=== PATIENT | female | born 1945 | race Caucasian/White ===

== ENCOUNTER 2018-01-30 19:38 | Emergency (ER) | payer MEDICARE, BC ==
[2018-01-30 20:20] LABS: URINE APPEARANCE CLEAR; URINE BILIRUBIN NEGATIVE (NEGATIVE); URINE BLOOD NEGATIVE (NEGATIVE); URINE COLOR YELLOW; URINE GLUCOSE (UA) NEGATIVE (NEGATIVE); URINE KETONE NEGATIVE (NEGATIVE); URINE LEUKOCYTE ESTERASE TRACE (NEGATIVE); URINE NITRITE NEGATIVE (NEGATIVE); URINE PROTEIN NEGATIVE (NEGATIVE); URINE UROBILINOGEN 0.2 E.U./dL (0.20 - 1.00)
--- NOTE | 2018-01-30 20:24 | Emergency Department Record ---
History of Present Illness - General Chief Complaint: Abdominal Pain Stated Complaint: ABD PAIN AND HIGH BP Time Seen by Provider: 01/30/18 20:21 Source: Patient Mode of Arrival: Ambulatory Limitations: No limitations - History of Present Illness Initial Comments: The patient is here due to not feeling well for one day. She has had a mild YAÑEZ and has been monitoring her blood pressure at home and it has been elevated. She also has had mild upper abdominal burning for one day. She denies any nausea , vomiting, CP, SOB, diarrhea, dysuria, or fevers. The patient does have a long hx of HTN and did take an extra dose of Clonidine tonight. MD Complaint: Abdominal pain Onset/Timin -: Days(s) Location: LUQ, RUQ Radiation: None Migration to: No migration Consistency: Constant Improves With: Nothing Worsens With: Nothing - Related Data Home Medications Medication Instructions Recorded Confirmed Last Taken Amlodipine Besylate [Norvasc] 10 mg PO DAILY 01/30/18 01/30/18 Unknown Allergies Allergy/AdvReac Type Severity Reaction Status Date / Time adenosine [ADENOSINE] Allergy Unknown HIVES Verified 07/11/15 16:18 codeine [CODEINE] Allergy Unknown HIVES Verified 07/11/15 16:18 esomeprazole magnesium Allergy Unknown HIVES Verified 07/11/15 16:18 [From NEXIUM] hydrocodone bitartrate Allergy Unknown HIVES Verified 07/11/15 16:18 [From VICODIN] labetalol [LABETALOL] Allergy Unknown ANAPHYLAXIS Verified 07/11/15 16:18 Penicillins [PENICILLINS] Allergy Unknown HIVES Verified 07/11/15 16:18 propoxyphene HCl Allergy Unknown HIVES Verified 07/11/15 16:18 [From DARVON] Sulfa (Sulfonamide Allergy Unknown RASH Verified 07/11/15 16:18 Antibiotics) [SULFA (SULFONAMIDE ANTIBIOTICS)] tetanus toxoid, adsorbed Allergy Unknown RASH Verified 07/11/15 16:18 [TETANUS TOXOID, ADSORBED] Travel Screening - Travel/Exposure Within Last 30 Days Have you traveled within the last 30 days?: No - Travel Symptoms Symptom Screening: None Review of Systems Constitutional: Denies: Chills, Fever Eyes: Denies: Eye discharge ENT: Denies: Congestion Respiratory: Denies: Cough, Dyspnea Past Medical History - SOCIAL HISTORY Smoking Status: Light tobacco smoker (<10/day) - RESPIRATORY Hx Respiratory Disorders: Yes Hx COPD: Yes - CARDIOVASCULAR Hx Cardio Disorders: Yes Hx Hypertension: Yes - NEURO Hx Neuro Disorders: No - GI Hx GI Disorders: Yes Hx Irritable Bowel: Yes - Hx Genitourinary Disorders: Yes Hx Renal Disease: Yes (No left kidney) Comment:: renal stent - ENDOCRINE Hx Endocrine Disorders: No Hx Diabetes: Yes ("my doctor thinks I might have diabetes.") - MUSCULOSKELETAL Hx Musculoskeletal Disorders: No - PSYCH Hx Psych Problems: No - HEMATOLOGY/ONCOLOGY Hx Hematology/Oncology Disorders: No Comment:: psoriasis Family Medical History Any Significant Family History?: Yes Hx Alcohol Use: Brother/Sister Hx Anxiety: Brother/Sister Hx Cancer: Brother/Sister Hx Depression: Brother/Sister Hx Diabetes: Brother/Sister, Grandparents Hx Heart Disease: Father Hx HTN: Father, Mother, Brother/Sister Hx Resp Disorders: Brother/Sister Hx Seizures: Children Hx Stroke: Father Physical Exam - General General Appearance: Alert, Oriented x3, Cooperative, No acute distress - Eye Eye exam: Normal appearance, PERRL - ENT Throat exam: Normal inspection. negative: Tonsillar erythema, Tonsillar exudate - Neck Neck exam: Normal inspection, Full ROM. negative: Tenderness - Respiratory Respiratory exam: Normal lung sounds bilaterally. negative: Respiratory distress - Cardiovascular Cardiovascular Exam: Regular rate, Normal rhythm, Normal heart sounds - GI/Abdominal GI/Abdominal exam: Soft, Tenderness (There is mild diffuse upper abdominal tenderness but no guarding or rebound.). negative: Distended, Rebound, Rigid - Extremities Extremities exam: Normal inspection, Full ROM, Normal capillary refill. negative: Tenderness Course Vital Signs 01/30/18 20:02 Temperature 97.9 F Pulse Rate [ 80 Pulse Ox Probe] Respiratory 20 Rate Blood Pressure 184/114 [Left Arm] Pulse Ox 97 - Reevaluation(s) Reevaluation #1: The patient is doing very well at this time. Her pain has definitely improved and she has no nausea or vomiting. The patient's BP is much improved also. I did discuss with her that our workup did not demonstrate any acute abnormality. 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 She is to restart her Protonix and increase her Clonidine and F/U with her multiple physicians for recheck. 01/30/18 22:59 Reevaluation #2: We did also recheck the patient's potassium and it is normal an redraw. 01/30/18 23:02 Medical Decision Making - Data Complexity MDM Data: Labs Ordered and/or Reviewed, X-Ray Ordered and/or Reviewed, EKG Ordered and/or Reviewed - Lab Data Result diagrams: 01/30/18 20:50 01/30/18 22:05 Lab Results 01/30/18 Range/Units 20:15 Urine Color Yellow Urine Appearance Clear Urine pH 6.0 (5.0-8.0) Ur Specific [place] <= 1.005 (1.002-1.030) Urine Protein Negative (NEGATIVE) Urine Glucose (UA) Negative (NEGATIVE) Urine Ketones Negative (NEGATIVE) Urine Blood Negative (NEGATIVE) Urine Nitrite Negative (NEGATIVE) Urine Bilirubin Negative (NEGATIVE) Urine Urobilinogen 0.2 (0.20 - 1.00) E.U./dL Ur Leukocyte Esterase Trace H (NEGATIVE) - EKG Data -: EKG Interpreted by [place] EKG: No Acute Changes (NSR at 72, Incomplete RBBB. Neg for any ischemic changes. 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 Take your Protonix as directed and return to the ER for any worsening symptoms, vomiting, fever, or diarrhea. Forms: Patient Portal Access Time of Disposition: 22:50 Quality - Quality Measures Quality Measures: N/A - Blood Pressure Screening View Details: Yes Does Patient Have Any of the Following: Active Dx of HTN Blood Pressure Classification: Pre-Hypertensive BP Reading Systolic Measurement: 144 Diastolic Measurement: 89 Screening for High Blood Pressure: Patient Exclusion, Hx of HTN [G9744]
[2018-01-30 20:29] LABS: URINE EPITHELIAL CELLS 0 - 2 (FEW); URINE RBC NONE SEEN (NONE SEEN); URINE WBC 0 - 2 (0-2/hpf)
[2018-01-30] MEDS ORDERED: ONDANSETRON HCL IV 4 MG/2 ML VIAL IV ONE (20:36)
[2018-01-30] MEDS ORDERED: 0.9 % SODIUM CHLORIDE 1,000 ML BAG IV ONE (20:36)
[2018-01-30] MEDS ORDERED: ACETAMINOPHEN 325 MG TAB PO ONE (20:37)
[2018-01-30 21:00] LABS: BASO % 0.4 % (0-6); EOS % 1.8 % (0-6); GRAN % 62.2 % (47-80); HEMATOCRIT 39.8 % (35.0-47.0); LYMPH % 30.2 % (16-45); MEAN CELL VOLUME 90.9 fl (81-97); MEAN CORPUSCULAR HEMOGLOBIN 29.7 pg (27-33); MEAN CORPUSCULAR HGB CONC 32.7 g/dl (32-36); MEAN PLATELET VOLUME 8.7 fl (7.4-10.4); MONO % 5.4 % (0-9); PLATELET COUNT 320 K/uL (130-400); RED BLOOD COUNT 4.38 M/uL (3.80-5.40); RED CELL DISTRIBUTION WIDTH 13.2 % (11.5-14.5)
[2018-01-30 21:14] LABS: BLOOD UREA NITROGEN 19 mg/dL (8-23); CREATININE 1.6 mg/dL (0.5-0.9); EST GLOMERULAR FILTRATION RATE 34 mL/min
[2018-01-30 21:15] LABS: TOTAL PROTEIN 6.9 g/dL (6.6-8.7)
[2018-01-30 21:17] LABS: GLUCOSE,RANDOM 131 mg/dL (74-109)
[2018-01-30 21:19] LABS: ALBUMIN 4.1 g/dL (4.0-5.0); ALT/SGPT 9 U/L (<33); AST/SGOT 15 U/L (10.0-35.0)
[2018-01-30 21:20] LABS: ALKALINE PHOSPHATASE 139 U/L (35-104); BILIRUBIN,DIRECT < 0.2 mg/dL (0-0.3); CREATINE PHOSPHOKINASE 39 U/L (26-192); LIPASE 52 U/L (13-60)
[2018-01-30 21:22] LABS: CKMB 1.5 ng/mL (<3.77)
[2018-01-30] MEDS ORDERED: SUCRALFATE 1 G/10 ML UD PO ONE (21:27)
--- NOTE | 2018-02-01 09:10 | CT SCAN REPORT ---
EXAM: CT SCAN OF THE ABDOMEN AND PELVIS WITHOUT CONTRAST HISTORY: UPPER ABDOMINAL PAIN AND BURNING SENSATION. TECHNIQUE: Standard CT imaging of the abdomen and pelvis was performed in the axial plane without contrast. Additional coronal and sagittal reformatted images were also performed. Comparison: 06/17/15. FINDINGS: The lung bases are clear. The liver parenchyma is unremarkable. The gallbladder is surgically absent. The biliary tree, pancreas, spleen, and left adrenal gland are normal. A stable low density nodule is present within the right adrenal gland consistent with a benign adenoma. A 3 mm nonobstructing stones is present within the inferior pole of the right kidney. The right kidney and ureter are otherwise normal. The left kidney is surgically absent. 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 This has increased in size from the previous examination where it measured 1.8 x 1.6 x 1.7 cm. There is no evidence for rupture. The patient is status post endovascular repair of the aorta. A right renal artery stent is present. An aortobiiliac graft is also present. There are aneurysms involving the femoral arteries bilaterally with the right measuring 4.1 cm AP x 2.6 cm transverse. This previously measured 2.6 cm AP x 2 cm transverse. The left femoral artery aneurysm measures 3.3 cm AP x 3.5 cm transverse. This previously measured 2.5 cm AP x 2.4 cm transverse. A femoral graft is also present anterior to the aneurysm. There is no evidence for aneurysm rupture. There is no retroperitoneal lymphadenopathy. Scattered diverticula are present within the descending and sigmoid colon regions with no evidence for acute diverticulitis. The remaining large and small bowel loops are normal. The stomach and epigastrium are normal. There is no pneumoperitoneum or ascites. The uterus is surgically absent. The urinary bladder is normal. Degenerative changes are present within the spine. There are no acute osseous abnormalities. IMPRESSION: 1. NO ACUTE INTRAABDOMINAL PATHOLOGY. 2. STATUS POST LEFT NEPHRECTOMY. THERE IS AN ANEURYSM AT THE LEFT RENAL ARTERY ORIGIN WHICH HAS INCREASED IN SIZE FROM THE PREVIOUS STUDY NOW MEASURING 2.7 X 2 X 2.2 CM. THERE IS NO EVIDENCE FOR RUPTURE. 3. BILATERAL FEMORAL ARTERY ANEURYSMS MEASURING 4.1 X 2.6 CM ON THE RIGHT AND 3.3 X 3.5 CM ON THE LEFT. THESE HAVE INCREASED IN SIZE FROM THE PREVIOUS EXAMINATION WITH PREVIOUS MEASUREMENTS NOTED ABOVE. 4. COLONIC DIVERTICULOSIS WITH NO DIVERTICULITIS. 5. STABLE 3 MM NONOBSTRUCTING STONE WITHIN THE RIGHT KIDNEY. 6. STABLE RIGHT ADRENAL ADENOMA. 7. ADDITIONAL CHRONIC FINDINGS ABOVE. JOB NUMBER: [id number] [facility]
== END 2018-01-30 23:03 | disposition home or self-care (01) ==
LOC: ER 19:38
DX: R10.12 Left upper quadrant pain (principal); R10.11 Right upper quadrant pain; R51 Headache; I10 Essential (primary) hypertension; F17.210 Nicotine dependence, cigarettes, uncomplicated
CPT/HCPCS: 74176; 80048; 80076; 81001; 82550; 82553; 83690; 84132; 84484; 85025; 93005; 93010; 96374; 99284; J7030

== ENCOUNTER 2018-06-18 18:03 | Emergency (ER) | payer MEDICARE, BC ==
[2018-06-18] MEDS ORDERED: 0.9 % SODIUM CHLORIDE 1000ML 1,000 ML IV SCH (18:30)
--- NOTE | 2018-06-18 18:35 | Emergency Department Record ---
History of Present Illness - General Stated complaint: DEHYDRATION, HIGH WHITE COUNT Time Seen by Provider: 06/18/18 18:19 Source: Patient, Family Mode of Arrival: Wheelchair Limitations: No limitations - History of Present Illness Initial comments: 72 yo female presents to ED for evaluation of generalized weakness, decreased appetite following recent AAA repair. Patient denies fevers, chills, or abdominal pain symptoms. Patient denies flank pain symptoms. Patient does reports that she contacted [facility] and was told to come to the ED for evaluation. Patient states that she left [facility] ED after 3 hours of waiting. MD Complaint: Generalized weakness Onset/Timin -: Week(s) Location: Generalized Severity: Moderate Consistency: Constant Improves with: None Worsens with: None Context: Recent surgery Associated Symptoms: Loss of appetite - [place] Coma Scale Eye Response: (4) Open spontaneously Motor Response: (6) Obeys commands Verbal Response: (5) Oriented [place] Total: 15 - Related Data Home Medications Medication Instructions Recorded Confirmed Last Taken Tiotropium [place] [Spiriva 4 gm IH DAILY 06/18/18 06/18/18 06/18/18 Respimat] Allergies Allergy/AdvReac Type Severity Reaction Status Date / Time adenosine [ADENOSINE] Allergy Unknown HIVES Verified 07/11/15 16:18 codeine [CODEINE] Allergy Unknown HIVES Verified 07/11/15 16:18 esomeprazole magnesium Allergy Unknown HIVES Verified 07/11/15 16:18 [From NEXIUM] hydrocodone bitartrate Allergy Unknown HIVES Verified 07/11/15 16:18 [From VICODIN] labetalol [LABETALOL] Allergy Unknown ANAPHYLAXIS Verified 07/11/15 16:18 Penicillins [PENICILLINS] Allergy Unknown HIVES Verified 07/11/15 16:18 propoxyphene HCl Allergy Unknown HIVES Verified 07/11/15 16:18 [From DARVON] Sulfa (Sulfonamide Allergy Unknown RASH Verified 07/11/15 16:18 Antibiotics) [SULFA (SULFONAMIDE ANTIBIOTICS)] tetanus toxoid, adsorbed Allergy Unknown RASH Verified 07/11/15 16:18 [TETANUS TOXOID, ADSORBED] Review of Systems Constitutional: Reports: Malaise, Weakness. Denies: Chills, Fever, Night sweats Eyes: Denies: Eye discharge, Eye pain ENT: Denies: Congestion, Epistaxis Respiratory: Denies: Cough, Dyspnea Cardiovascular: Denies: Chest pain, Dyspnea on exertion Endocrine: Reports: Fatigue. Denies: Heat or cold intolerance Gastrointestinal: Reports: Nausea. Denies: Abdominal pain, Vomiting Genitourinary: Denies: Incontinence, Retention Musculoskeletal: Denies: Arthralgia, Back pain Skin: Denies: Bruising, Change in color Neurological: Denies: Abnormal gait, Confusion, Headache, Tingling Psychiatric: Denies: Anxiety Hematological/Lymphatic: Denies: Anemia, Blood Clots Past Medical History - SOCIAL HISTORY Smoking Status: Light tobacco smoker (<10/day) - RESPIRATORY Hx Respiratory Disorders: Yes Hx COPD: Yes - CARDIOVASCULAR Hx Cardio Disorders: Yes Hx Hypertension: Yes - NEURO Hx Neuro Disorders: No - GI Hx GI Disorders: Yes Hx Irritable Bowel: Yes - Hx Genitourinary Disorders: Yes Hx Renal Disease: Yes (No left kidney) Comment:: renal stent - ENDOCRINE Hx Endocrine Disorders: No Hx Diabetes: Yes ("my doctor thinks I might have diabetes.") - MUSCULOSKELETAL Hx Musculoskeletal Disorders: No - PSYCH Hx Psych Problems: No - HEMATOLOGY/ONCOLOGY Hx Hematology/Oncology Disorders: No Comment:: psoriasis Family Medical History Hx Alcohol Use: Brother/Sister Hx Anxiety: Brother/Sister Hx Cancer: Brother/Sister Hx Depression: Brother/Sister Hx Diabetes: Brother/Sister, Grandparents Hx Heart Disease: Father Hx HTN: Father, Mother, Brother/Sister Hx Resp Disorders: Brother/Sister Hx Seizures: Children Hx Stroke: Father Physical Exam - General General Appearance: Alert, Oriented x3, Cooperative, Moderate distress Limitations: No limitations - Head Head exam: Atraumatic, Normocephalic, Normal inspection Head exam detail: negative: Abrasion, Contusion, Kirkpatrick's sign, General tenderness, Hematoma, Laceration - Eye Eye exam: Normal appearance. negative: Conjunctival injection, Periorbital swelling, Periorbital tenderness, Scleral icterus - ENT Ear exam: negative: Auricular hematoma, Auricular trauma Nasal Exam: negative: Active bleeding, Discharge, Dried blood, Foreign body Mouth exam: negative: Drooling, Laceration, Muffled voice, Tongue elevation - Neck Neck exam: Normal inspection. negative: Meningismus, Tenderness - Respiratory Respiratory exam: Normal lung sounds bilaterally. negative: Respiratory distress, Rhonchi, Stridor, Wheezes - Cardiovascular Cardiovascular Exam: Normal rhythm, Normal heart sounds, Tachycardia Peripheral Pulses: 2+: Dorsalis Pedis (R), 3+: Radial (R), Radial (L), Dorsalis Pedis (L) - GI/Abdominal GI/Abdominal exam: Soft, Other (Post-operative changes to [place] abdominal wall, nontender on examination.). negative: Rebound, Rigid - Rectal Rectal exam: Deferred - exam: Deferred - Extremities Extremities exam: Normal inspection. negative: Calf tenderness, Pedal edema, Tenderness - Back Back exam: Denies: CVA tenderness (R), CVA tenderness (L) - Neurological Neurological exam: Alert, Oriented X3. negative: Motor sensory deficit - Psychiatric Psychiatric exam: Normal affect, Normal mood - Skin Skin exam: Normal color. negative: Abrasion Type of lesion: negative: abrasion Course - Reevaluation(s) Reevaluation #1: 06/18/18 18:47 EKG: Sinus tachycardia 101 RAD, normal intervals T wave inversions III only Reevaluation #2: 06/18/18 19:32 Laboratory studies were reviewed: WBC 17.6 Hgb 11.1 HCT 36.2 BUN 24/Creatinine 1.5 LA 1.3. UA pending. Reevaluation #3: 06/18/18 20:07 CXR: Hyperinflation suggesting COPD No acute infiltrate Awaiting UA at this time. Reevaluation #4: 06/18/18 20:26 UA reviewed and appears negative. Will perform CT imaging of [facility] abdomen and pelvis to exclude an acute infectious post-operative process. Reevaluation #5: 06/18/18 22:34 Patient is back from CT Abdomen/Pelvis, radiologic interpretation is pending. Vancomycin ordered for possible abscess right thigh. 06/18/18 22:53 CT Abdomen and Pelvis w/o contrast: 6 cm gas and fluid-filled collection encases the right femoral artery 3.9 cm fluid collection is present posterior to the left femoral artery- hematoma vs. abscess vs. psuedoaneurysm Diverticulosis Constipation [facility]-call contacted re: transfer. 06/18/18 23:06 Case was discussed with Dr. Iqbal and Dr. Ramos, will accept transfer at this time. Medical Decision Making - Lab Data Result diagrams: 06/18/18 18:25 06/18/18 18:25 Disposition Disposition: Transfer Clinical Impression: S/P AAA repair Postoperative abscess Qualifiers: Encounter type: initial encounter Qualified Code(s): T81.4XXA - Infection following a procedure, initial encounter Disposition: Acute Care Hospital Transfer Transfer To: [facility] Reason For Transfer: CV Surgery consultation Accepting Physician: [place] Time Discussed w/Accepting Physician: 23:07 Condition: (2) Stable Time of Disposition: 23:07 Quality - Quality Measures Quality Measures: N/A - Blood Pressure Screening Does Patient Have Any of the Following: No Blood Pressure Classification: Hypertensive Reading Systolic Measurement: 165 Diastolic Measurement: 93 Screening for High Blood Pressure: < First Hypertensive BP, F/U Documented > [ G8950] First Hypertensive Follow-up Interventions: Referral to alternative/primary care provider.
[2018-06-18 19:03] LABS: BASO % 0.3 % (0-6); EOS % 1.9 % (0-6); GRAN % 67.2 % (47-80); HEMATOCRIT 36.2 % (35.0-47.0); HEMOGLOBIN 11.1 gm/dl (11.6-16.0); LYMPH % 24.1 % (16-45); MEAN CELL VOLUME 100.3 fl (81-97); MEAN CORPUSCULAR HEMOGLOBIN 30.7 pg (27-33); MEAN CORPUSCULAR HGB CONC 30.7 g/dl (32-36); MEAN PLATELET VOLUME 8.9 fl (7.4-10.4); MONO % 6.5 % (0-9); PLATELET COUNT 604 K/uL (130-400); RED BLOOD COUNT 3.61 M/uL (3.80-5.40); RED CELL DISTRIBUTION WIDTH 14.4 % (11.5-14.5); WHITE BLOOD COUNT W/O DIFF 17.6 K/uL (4.2-12.2)
[2018-06-18 19:16] LABS: BLOOD UREA NITROGEN 24 mg/dL (8-23); CREATININE 1.5 mg/dL (0.5-0.9); EST GLOMERULAR FILTRATION RATE 36 mL/min; TOTAL PROTEIN 7.4 g/dL (6.6-8.7)
[2018-06-18 19:18] LABS: GLUCOSE,RANDOM 150 mg/dL (74-109)
[2018-06-18 19:21] LABS: ALB/GLOB RATIO 1.2 (1.1-1.8); ALKALINE PHOSPHATASE 123 U/L (35-104); ALT/SGPT 23 U/L (<33); AST/SGOT 33 U/L (10.0-35.0)
[2018-06-18 20:23] LABS: URINE APPEARANCE CLEAR; URINE BILIRUBIN NEGATIVE (NEGATIVE); URINE BLOOD NEGATIVE (NEGATIVE); URINE COLOR YELLOW; URINE GLUCOSE (UA) NEGATIVE (NEGATIVE); URINE KETONE NEGATIVE (NEGATIVE); URINE LEUKOCYTE ESTERASE NEGATIVE (NEGATIVE); URINE NITRITE NEGATIVE (NEGATIVE); URINE PROTEIN NEGATIVE (NEGATIVE); URINE UROBILINOGEN 0.2 E.U./dL (0.20 - 1.00)
[2018-06-18] MEDS ORDERED: VANCOMYCIN HCL 1,000 MG in 0.9 % SODIUM CHLORIDE 250ML 250 ML IVPB ONE (22:27)
--- NOTE | 2018-06-19 10:13 | RADIOLOGY REPORT ---
DATE: 06/18/2018 at 7:17 p.m. EXAM: TWO VIEW, CHEST. HISTORY: Decreased appetite, weakness, postoperative. TECHNIQUE: PA and lateral views. COMPARISON: Two-view, chest, dated 07/11/2015. FINDINGS: Heart size is normal. Lungs appear somewhat hyperinflated suggesting underlying chronic obstructive pulmonary disease. No definite acute infiltrate is seen, and no pleural effusion or pneumothorax evident. Coarse calcifications in both breasts as previously noted. Aortic graft/stent again noted. On the lateral view, there is a linear metallic density overlying the base of the heart anteriorly not clearly seen on the frontal view, and may be external to the patient. This is about 4.6 cm in length and has a somewhat dumbbell shape with slightly expanded end at both ends. IMPRESSION: 1. HYPERINFLATION SUGGESTING CHRONIC OBSTRUCTIVE PULMONARY DISEASE. 2. CALCIFICATION AND TORSION OF THE AORTA. 3. NO ACUTE INFILTRATE EVIDENT. 4. CALCIFIED DENSITIES IN BOTH BREASTS BEFORE. 5. POSTOPERATIVE CHANGES INVOLVING THE ABDOMINAL AORTA. 6. LINEAR, DUMBBELL-SHAPED DENSITY OVERLYING THE INFERIOR ASPECT OF THE HEART ANTERIORLY ON THE LATERAL VIEW, NOT WELL SEEN ON THE FRONTAL VIEW, AND MAY BE EXTERNAL TO THE PATIENT. CLINICAL CORRELATION SUGGESTED. JOB NUMBER: [id number] MTDD
--- NOTE | 2018-06-20 21:00 | CT SCAN REPORT ---
EXAM: CT SCAN ABDOMEN/PELVIS WO CONTRAST HISTORY: NAUSEA, WEAKNESS, AND WEIGHT LOSS. NO RECENT SURGERY. TECHNIQUE: Helical CT scan of the abdomen and pelvis obtained without intravenous or oral contrast. COMPARISON: CT abdomen and pelvis without contrast 01/30/2018. FINDINGS: Lung bases show emphysematous change, peribronchial thickening and a few tiny tree-in-bud opacities, consistent with distal mucoid impaction of the airways. No pleural or pericardial effusion. Coronary artery calcifications are noted. Limited evaluation of the solid organs without intravenous contrast. A stent graft is again seen in the abdominal aorta. The lumen of the vascular structures is not evaluated without IV contrast. There is also an aortobifemoral bypass graft again seen. Focal outpouching of the left lateral aspect of the aorta above the iliac arteries again measures about 2.1 cm. The fluid collection surrounding the distal anastomosis of the right aortofemoral bypass graft is larger, measures 6.4 x 5.4 cm compared to 4.1 x 2.6 cm on previous exam. There are now several pockets of gas within this collection, which was not seen on previous exam. The fluid collection surrounding the distal anastomosis of the left aortofemoral bypass graft is stable. Liver has upper normal size. 5 m calculus again seen in the lower pole of the right kidney. No hydronephrosis. The left kidney is again surgically absent. Thickening of the right adrenal gland is stable. Bowel has normal caliber. No ascites. No adenopathy. Review of the bones shows no significant abnormalities. IMPRESSION: 1. INTERVAL INCREASED SIZE OF THE COMPLEX FLUID COLLECTION SURROUNDING THE DISTAL ANASTOMOSIS OF THE RIGHT AORTOFEMORAL BYPASS GRAFT. THERE IS GAS WITHIN THIS COLLECTION NOW. THIS IS CONCERNING FOR INFECTION. I HAVE NO HISTORY OF RECENT PROCEDURE WHICH MAY EXPLAIN THESE FINDINGS. 2. NO OTHER SIGNIFICANT ABNORMALITIES IN THE ABDOMEN AND PELVIS IN THE INTERIM. JOB NUMBER: [id number] [facility]
== END 2018-06-19 00:41 | disposition short-term general hospital (02) ==
LOC: ER 18:03
DX: T81.4XXA Infection following a procedure, initial encounter (principal); K58.9 Irritable bowel syndrome, unspecified; J44.9 Chronic obstructive pulmonary disease, unspecified; F17.210 Nicotine dependence, cigarettes, uncomplicated; I10 Essential (primary) hypertension; Z90.5 Acquired absence of kidney
CPT/HCPCS: 99284; 96365; 99285; 83605; 85025; 80053; 81003; 84484; 71046; 74176; 93005; 93010; J3370; J7050

== ENCOUNTER 2018-12-04 11:24 | Emergency (ER) | payer MEDICARE, BC ==
[2018-12-04] MEDS ORDERED: DIAZEPAM (VALIUM) 5MG/ML **10ML VIAL IVP ONE (11:40)
[2018-12-04] MEDS ORDERED: 0.9 % SODIUM CHLORIDE 1,000 ML BAG IV ONE (11:42)
--- NOTE | 2018-12-04 11:44 | Emergency Department Record ---
History of Present Illness - General Chief Complaint: Dizziness Stated Complaint: DIZZY Time Seen by Provider: 12/04/18 11:30 Source: Patient, EMS Mode of Arrival: Stretcher Limitations: No limitations - History of Present Illness Initial Comments: Pt relates dizziness on set today prior to arrival. Hx of similar in past treated with Antivert which she took today without relief. Dizzy occures with moving her head from side to side. No nausea or vomiting. Better is still. No YAÑEZ, no weakness, no change in speech and vision. Pt is not Diabetic, no recent illness. Relates a 30# weight loss over past years since her husbands . Smoker daily. No alcohol. Lives alone and drives "occasionally". MD Complaint: Dizziness Onset/Timin -: Hour(s) Timing: Gradual onset History of Same: Yes History of Trauma: No Severity: Moderate Improves With: Nothing Worsens With: Position Associated Symptoms: Denies other symptoms - Juan Coma Scale Eye Response: (4) Open spontaneously Motor Response: (6) Obeys commands Verbal Response: (5) Oriented Juan Total: 15 - Symptoms of Stroke Onset of Symptoms Date: 12/04/18 Onset of Symptoms Time: 08:30 Symptom Onset Unknown: Yes (this AM) Symptoms of stroke: Dizziness - Related Data Home Medications Medication Instructions Recorded Confirmed Last Taken Aspirin [Aspir-Low] 1 tab PO DAILY 12/04/18 12/04/18 12/04/18 Ergocalciferol (Vitamin D2) 1 cap PO WEEKLY 12/04/18 12/04/18 3 Weeks Ago [Vitamin D2] ~11/13/18 1 cap Allergies Allergy/AdvReac Type Severity Reaction Status Date / Time adenosine [ADENOSINE] Allergy Unknown HIVES Verified 12/04/18 11:30 codeine [CODEINE] Allergy Unknown HIVES Verified 12/04/18 11:30 esomeprazole magnesium Allergy Unknown HIVES Verified 12/04/18 11:30 [From NEXIUM] hydrocodone bitartrate Allergy Unknown HIVES Verified 12/04/18 11:30 [From VICODIN] labetalol [LABETALOL] Allergy Unknown ANAPHYLAXIS Verified 12/04/18 11:30 Penicillins [PENICILLINS] Allergy Unknown HIVES Verified 12/04/18 11:30 propoxyphene HCl Allergy Unknown HIVES Verified 12/04/18 11:30 [From DARVON] Sulfa (Sulfonamide Allergy Unknown RASH Verified 12/04/18 11:30 Antibiotics) [SULFA (SULFONAMIDE ANTIBIOTICS)] tetanus toxoid, adsorbed Allergy Unknown RASH Verified 12/04/18 11:30 [TETANUS TOXOID, ADSORBED] Review of Systems Constitutional: Denies: Chills, Fever, Malaise, Weakness Eyes: Denies: Eye discharge, Eye pain, Photophobia, Vision change ENT: Denies: Congestion, Ear pain, Hearing loss, Throat pain Respiratory: Denies: Cough, Dyspnea, Wheezes Cardiovascular: Denies: Arrhythmia, Chest pain, Dyspnea on exertion, Palpitations, Paroxysmal nocturnal dyspnea, Syncope Endocrine: Denies: Fatigue, Polydipsia, Polyuria Gastrointestinal: Denies: Abdominal pain, Constipation, Diarrhea, Nausea, Vomiting Musculoskeletal: Denies: Arthralgia, Back pain Skin: Denies: Bruising, Rash Neurological: Reports: As per HPI. Denies: Abnormal gait, Confusion, Headache, Seizure, Weakness Psychiatric: Denies: Anxiety, Homicidal thoughts, Suicidal thoughts Hematological/Lymphatic: Denies: Anemia Past Medical History - SOCIAL HISTORY Smoking Status: Light tobacco smoker (<10/day) - RESPIRATORY Hx Respiratory Disorders: Yes Hx COPD: Yes - CARDIOVASCULAR Hx Cardio Disorders: Yes Hx Hypertension: Yes - NEURO Hx Neuro Disorders: No - GI Hx GI Disorders: Yes Hx Irritable Bowel: Yes - Hx Genitourinary Disorders: Yes Hx Renal Disease: Yes (No left kidney) Comment:: renal stent - ENDOCRINE Hx Endocrine Disorders: No Hx Diabetes: Yes ("my doctor thinks I might have diabetes.") - MUSCULOSKELETAL Hx Musculoskeletal Disorders: No - PSYCH Hx Psych Problems: No - HEMATOLOGY/ONCOLOGY Hx Hematology/Oncology Disorders: No Comment:: psoriasis Family Medical History Hx Alcohol Use: Brother/Sister Hx Anxiety: Brother/Sister Hx Cancer: Brother/Sister Hx Depression: Brother/Sister Hx Diabetes: Brother/Sister, Grandparents Hx Heart Disease: Father Hx HTN: Father, Mother, Brother/Sister Hx Resp Disorders: Brother/Sister Hx Seizures: Children Hx Stroke: Father Physical Exam - General General Appearance: Alert, Oriented x3, Cooperative, No acute distress Limitations: No limitations - Head Head exam: Atraumatic Head exam detail: negative: Abrasion, Hematoma - Eye Eye exam: PERRL, EOMI. negative: Conjunctival injection, Nystagmus - ENT ENT exam: Mucous membranes moist, Normal external ear exam, Normal orophraynx, TM's normal bilaterally Nasal Exam: negative: Sinus tenderness Mouth exam: negative: Drooling, Laceration, Muffled voice Throat exam: negative: Tonsillar erythema - Neck Neck exam: Normal inspection, Full ROM. negative: Lymphadenopathy - Respiratory Respiratory exam: Normal lung sounds bilaterally. negative: Rhonchi, Wheezes - Cardiovascular Cardiovascular Exam: Regular rate, Normal rhythm. negative: Tachycardia ( occasional ectopy) - GI/Abdominal GI/Abdominal exam: Soft, Normal bowel sounds. negative: Guarding, Tenderness - Extremities Extremities exam: Normal inspection, Full ROM. negative: Calf tenderness, Joint swelling, Tenderness - Back Back exam: Reports: Normal inspection. Denies: CVA tenderness (R), CVA tenderness (L), Paraspinal tenderness - Neurological Neurological exam: Alert, CN II-XII intact, Oriented X3, Reflexes normal. negative: Altered, Motor sensory deficit - Psychiatric Psychiatric exam: Normal affect, Normal mood. negative: Agitated, Anxious - Skin Skin exam: Normal color. negative: Rash Stroke Assessment - NIH Stroke Scale 1a. Level of Consciousness: (0) Alert 1b. LOC Questions: (0) Answers Correctly 1c. LOC Commands: (0) Performs Tasks Correctly 2. Best Gaze: (0) Normal 3. Visual: (0) No Visual Loss 4. Facial Palsy: (0) Normal Symmetrical Movement 5a. Motor Arm Left: (0) No Drift 5b. Motor Arm Right: (0) No Drift 6a. Motor Leg Left: (0) No Drift 6b. Motor Leg Right: (0) No Drift 7. Limb Ataxia: (0) Absent 8. Sensory: (0) Normal 9. Best Language: (0) No Aphasia 10. Dysarthria: (0) Normal 11. Extinction/Inattention: (0) No Abnormality NIH Stoke Scale Total: 0 NIH Stroke Scale Date: 12/04/18 NIH Stroke Scale Time: 11:44 Course - Reevaluation(s) Reevaluation #1: 12/04/18 11:57 Seen on arrival. NIH Stroke score 0. EKG not acute. No family present. EMS arrival. Lives alone. Reproducable symptoms of dizziness. Reevaluation #2: 12/04/18 13:42 Called daughter Marvin at [phone]. Message left. No other number. Pt feeling much better. Lunch tray provided. No complaints. Would prefer the patient be home with family and await reply from daughter in [place]. Reevaluation #3: 12/04/18 16:29 Pt spoke with daughter Marvin. I spoke with Marvin. She will come to get her mother and she will stay with her tonight. Pt. feeling good without dizziness. Up and ambulated to rest room without issues. Procedures - EKG Initial Date: 12/04/18 Time: 11:45 EKG: No Acute Changes (comp 7-27-18) Medical Decision Making - Lab Data Result diagrams: 12/04/18 11:12 12/04/18 11:12 Disposition Disposition: Discharge Clinical Impression: Dizziness Disposition: Home, Self-Care Condition: (2) Stable Instructions: Dizziness (ED) Additional Instructions: Increase fluids at home. DO NOT drive until cleared by your physician. To stay with family until totally better. See your doctor in 1-2 days. Return to the ED at any time if concerns or issues. Forms: Patient Portal Access Time of Disposition: 16:31 Quality - Quality Measures Quality Measures: N/A - Blood Pressure Screening Does Patient Have Any of the Following: No, Active Dx of HTN Blood Pressure Classification: Hypertensive Reading Systolic Measurement: 168 Diastolic Measurement: 97 Screening for High Blood Pressure: Patient Exclusion, Hx of HTN [G9744]
[2018-12-04 12:04] LABS: BASO % 0.4 % (0-6); EOS % 0.9 % (0-6); GRAN % 65.3 % (47-80); HEMATOCRIT 41.4 % (35.0-47.0); HEMOGLOBIN 13.7 gm/dl (11.6-16.0); LYMPH % 28.3 % (16-45); MEAN CELL VOLUME 85.2 fl (81-97); MEAN CORPUSCULAR HEMOGLOBIN 28.2 pg (27-33); MEAN CORPUSCULAR HGB CONC 33.1 g/dl (32-36); MEAN PLATELET VOLUME 8.1 fl (7.4-10.4); MONO % 5.1 % (0-9); PLATELET COUNT 507 K/uL (130-400); RED BLOOD COUNT 4.86 M/uL (3.80-5.40); RED CELL DISTRIBUTION WIDTH 14.8 % (11.5-14.5); WHITE BLOOD COUNT W/O DIFF 13.1 K/uL (4.2-12.2)
[2018-12-04 12:12] LABS: PROTHROMBIN TIME (PATIENT) 10.3 SECONDS (9.5-12.1)
[2018-12-04 12:13] LABS: CREATININE 1.2 mg/dL (0.5-0.9)
[2018-12-04 12:38] LABS: THYROID STIMULATING HORMONE 1.95 uIU/mL (0.270-4.20)
--- NOTE | 2018-12-06 08:27 | RADIOLOGY REPORT ---
EXAM: CHEST, TWO VIEWS HISTORY: DIZZY. TECHNIQUE: Frontal and lateral views of the chest were performed. Comparison: 06/18/18. FINDINGS: The heart size is normal. The lungs are hyperinflated. Calcified granuloma bilateral lower lobes. No infiltrate or pleural effusion. The osseous structures are normal. IMPRESSION: HYPERINFLATED LUNGS. NO ACUTE PULMONARY DISEASE PROCESS. HEALED GRANULOMATOUS DISEASE. JOB NUMBER: [id number] [facility]
--- NOTE | 2018-12-06 08:40 | CT SCAN REPORT ---
EXAM: CT OF THE BRAIN WITHOUT CONTRAST HISTORY: DIZZINESS. TECHNIQUE: Sequential axial images were obtained from the foramen magnum to the vertex without contrast administration. FINDINGS: There is nonspecific periventricular small vessel ischemic change. No large territorial infarct, hemorrhage, mass effect, or midline shift. No extraaxial fluid collection. IMPRESSION: PERIVENTRICULAR SMALL VESSEL ISCHEMIA. NO DEFINITIVE LARGE TERRITORIAL INFARCT , HEMORRHAGE, MASS EFFECT, OR MIDLINE SHIFT. JOB NUMBER: [id number] [facility]
== END 2018-12-04 17:22 | disposition home or self-care (01) ==
LOC: ER 11:24
DX: R42 Dizziness and giddiness (principal); J44.9 Chronic obstructive pulmonary disease, unspecified; I10 Essential (primary) hypertension; F17.210 Nicotine dependence, cigarettes, uncomplicated
CPT/HCPCS: 99284 ×2; 96374; 83735; 85025; 85730; 85610; 80048; 36416; 82948; 84443; 84484; 71046; 70450; 93005; 93010; J3360; J7030

== ENCOUNTER 2019-02-18 02:37 | Emergency (ER) | payer MEDICARE, BC ==
[2019-02-18] MEDS ORDERED: IPRATROPIUM/ALBUTEROL (0.5MG/3MG) NEB INH ONE (02:39)
[2019-02-18] MEDS ORDERED: METHYLPREDNISOLONE PF 125MG/VIAL IVP ONE (02:39)
[2019-02-18] MEDS ORDERED: LORAZEPAM 2 MG/ML VIAL IV ONE (02:40)
--- NOTE | 2019-02-18 02:44 | Emergency Department Record ---
History of Present Illness - General Chief Complaint: Shortness of breath Stated Complaint: TROUBLE BREATHING Time Seen by Provider: 02/18/19 02:38 Source: Patient, EMS Mode of Arrival: EMS Limitations: No limitations - History of Present Illness Initial Comments: 73 yo female with a significant history for COPD presents to ED for evaluation of progressively worsening shortness of breath for the past 1 week. Patient reports non-productive cough symptoms, denies fevers, chills, or recent illness. Patient denies lower extremity edema or history of CHF, denies calf pain, swelling, or history of DVT. MD Complaint: Shortness of breath Onset/Timin -: Week(s) Severity: Moderate Consistency: Constant Improves With: Bronchodilators Worsens With: Nothing Known History Of: COPD Associated Symptoms: Denies other symptoms Treatments Prior to Arrival: Bronchodilator - Related Data Home Oxygen Therapy: No Home Medications Medication Instructions Recorded Confirmed Last Taken Losartan Potassium [Cozaar] 50 mg PO DAILY 02/18/19 02/18/19 Unknown Pitavastatin Calcium [Livalo] 0.5 mg PO DAILY 02/18/19 02/18/19 Unknown Allergies Allergy/AdvReac Type Severity Reaction Status Date / Time adenosine [ADENOSINE] Allergy Unknown HIVES Verified 12/04/18 11:30 codeine [CODEINE] Allergy Unknown HIVES Verified 12/04/18 11:30 esomeprazole magnesium Allergy Unknown HIVES Verified 12/04/18 11:30 [From NEXIUM] hydrocodone bitartrate Allergy Unknown HIVES Verified 12/04/18 11:30 [From VICODIN] labetalol [LABETALOL] Allergy Unknown ANAPHYLAXIS Verified 12/04/18 11:30 Penicillins [PENICILLINS] Allergy Unknown HIVES Verified 12/04/18 11:30 propoxyphene HCl Allergy Unknown HIVES Verified 12/04/18 11:30 [From DARVON] Sulfa (Sulfonamide Allergy Unknown RASH Verified 12/04/18 11:30 Antibiotics) [SULFA (SULFONAMIDE ANTIBIOTICS)] tetanus toxoid, adsorbed Allergy Unknown RASH Verified 12/04/18 11:30 [TETANUS TOXOID, ADSORBED] Review of Systems Constitutional: Denies: Chills, Fever, Malaise, Night sweats Eyes: Denies: Eye discharge, Eye pain ENT: Denies: Congestion, Ear pain, Epistaxis Respiratory: Reports: Cough, Dyspnea, Wheezes Cardiovascular: Reports: Dyspnea on exertion. Denies: Chest pain, Edema, Palpitations Endocrine: Reports: Fatigue. Denies: Heat or cold intolerance Gastrointestinal: Denies: Abdominal pain, Nausea, Vomiting Genitourinary: Denies: Incontinence, Retention Musculoskeletal: Denies: Arthralgia, Back pain Skin: Denies: Bruising, Change in color Neurological: Denies: Abnormal gait, Confusion, Headache, Seizure Psychiatric: Denies: Anxiety Hematological/Lymphatic: Denies: Anemia, Blood Clots Past Medical History - SOCIAL HISTORY Smoking Status: Light tobacco smoker (<10/day) - RESPIRATORY Hx Respiratory Disorders: Yes Hx COPD: Yes - CARDIOVASCULAR Hx Cardio Disorders: Yes Hx Hypertension: Yes - NEURO Hx Neuro Disorders: No - GI Hx GI Disorders: Yes Hx Irritable Bowel: Yes - Hx Genitourinary Disorders: Yes Hx Renal Disease: Yes (No left kidney) Comment:: renal stent - ENDOCRINE Hx Endocrine Disorders: No Hx Diabetes: Yes ("my doctor thinks I might have diabetes.") - MUSCULOSKELETAL Hx Musculoskeletal Disorders: No - PSYCH Hx Psych Problems: No - HEMATOLOGY/ONCOLOGY Hx Hematology/Oncology Disorders: No Comment:: psoriasis Family Medical History Hx Alcohol Use: Brother/Sister Hx Anxiety: Brother/Sister Hx Cancer: Brother/Sister Hx Depression: Brother/Sister Hx Diabetes: Brother/Sister, Grandparents Hx Heart Disease: Father Hx HTN: Father, Mother, Brother/Sister Hx Resp Disorders: Brother/Sister Hx Seizures: Children Hx Stroke: Father Physical Exam - General General Appearance: Alert, Oriented x3, Cooperative, Moderate distress, Other ( Patient receiving duoneb on arrival, tripod-position, appears to be in moderate respiratory distress) Limitations: No limitations - Head Head exam: Atraumatic, Normocephalic, Normal inspection Head exam detail: negative: Abrasion, Contusion, Kirkpatrick's sign, General tenderness, Hematoma, Laceration - Eye Eye exam: Normal appearance. negative: Conjunctival injection, Periorbital swelling, Periorbital tenderness, Scleral icterus - ENT Ear exam: negative: Auricular hematoma, Auricular trauma Nasal Exam: negative: Active bleeding, Discharge, Dried blood, Foreign body Mouth exam: negative: Drooling, Laceration, Muffled voice, Tongue elevation - Neck Neck exam: Normal inspection. negative: Meningismus, Tenderness - Respiratory Respiratory exam: Decreased breath sounds, Prolonged expiratory, Respiratory distress, Wheezes. negative: Rales, Rhonchi, Stridor - Cardiovascular Cardiovascular Exam: Normal rhythm, Normal heart sounds, Tachycardia - GI/Abdominal GI/Abdominal exam: Soft. negative: Rebound, Rigid, Tenderness - Rectal Rectal exam: Deferred - exam: Deferred - Extremities Extremities exam: Normal inspection. negative: Pedal edema, Tenderness - Back Back exam: Denies: CVA tenderness (R), CVA tenderness (L) - Neurological Neurological exam: Alert, Oriented X3. negative: Motor sensory deficit - Psychiatric Psychiatric exam: Anxious - Skin Skin exam: Normal color. negative: Abrasion Type of lesion: negative: abrasion Course - Reevaluation(s) Reevaluation #1: 02/18/19 02:46 patient was seen and examined, Bipap ordered on arrival. IV solumedrol ordered as well as duoneb via the Bipap. Reevaluation #2: 02/18/19 02:53 EKG: Sinus tachycardia 135 Normal axis, Incomplete RBBB Rate-related ST-T wave changes Reevaluation #3: 02/18/19 03:11 CXR reviewed: ? Patchy infiltrate right base Levaquin initiated in ED Patient appears to be tolerating Bipap well, ABG pending. Reevaluation #4: 02/18/19 03:18 Initial laboratory studies were reviewed: WBC 16.7 Influenza Negative CO2 30 AST 79 ALT 53 Alk phos 122 Troponin 0.051 Reevaluation #5: 02/18/19 03:32 Case was discussed with Dr. Aguilar, will accept transfer at this time. 02/18/19 03:38 Repeat BP 75/60, 1 Liter bolus ordered to infuse as her 500 mL bolus is completed. 02/18/19 03:41 ABG was reviewed: 7.28/57/99/26/98.1 Will continue treatment with Bipap at this time and monitor closely. 02/18/19 04:31 EMS is present for transfer. 1500 mL infused, 500 mL additional bolus ordered for transport. Medical Decision Making - Lab Data Result diagrams: 02/18/19 02:25 02/18/19 02:25 Critical Care Time Critical Care Time: Yes Total Critical Care Time: 90 Critical Care Time: Initiation of bipap for respiratory failure, treatment of COPD with acute exacerbation, and diagnosis and treatment of CAP. EKG interpretation, review of laboratory studies, ABG interpretation, CXR intepretation, and frequent reassessments for improvement, initiation for transfer to ICU for further stabilization. Disposition Disposition: Transfer Clinical Impression: COPD with acute exacerbation, Elevated troponin, Elevated liver enzymes Sepsis Qualifiers: Sepsis type: sepsis due to unspecified organism Qualified Code(s): A41.9 - Sepsis, unspecified organism Respiratory failure Qualifiers: Chronicity: acute Respiratory failure complication: hypoxia and hypercapnia Qualified Code(s): J96.01 - Acute respiratory failure with hypoxia Disposition: [facility] Transfer Transfer To: [facility] Reason For Transfer: ICU transfer Accepting Physician: Jeff Price Time Discussed w/Accepting Physician: 04:34 Condition: (3) Guarded Forms: Patient Portal Access Time of Disposition: 03:17 Quality - Quality Measures Quality Measures: N/A - Blood Pressure Screening Does Patient Have Any of the Following: No Blood Pressure Classification: Pre-Hypertensive BP Reading Systolic Measurement: 99 Diastolic Measurement: 83 Screening for High Blood Pressure: < Pre-Hypertensive BP, F/U Documented > [ G8950] Pre-Hypertensive Follow-up Interventions: Referral to alternative/primary care provider.
[2019-02-18] MEDS ORDERED: ACETAMINOPHEN 500 MG TABLET PO ONE (02:49)
[2019-02-18] MEDS ORDERED: ACETAMINOPHEN 1,000 MG/100 ML BTL IVPB ONE (02:50)
[2019-02-18] MEDS ORDERED: ONDANSETRON HCL IV 4 MG/2 ML VIAL IVP ONE (02:50)
[2019-02-18] MEDS: 0.9 % SODIUM CHLORIDE 1000ML 500 ML IV SCH ×2 (02:53→03:35)
[2019-02-18 02:58] LABS: BASO % 0.2 % (0-6); EOS % 0.1 % (0-6); GRAN % 73.2 % (47-80); HEMATOCRIT 40.8 % (35.0-47.0); HEMOGLOBIN 13.2 gm/dl (11.6-16.0); LYMPH % 21.3 % (16-45); MEAN CELL VOLUME 88.3 fl (81-97); MEAN CORPUSCULAR HEMOGLOBIN 28.6 pg (27-33); MEAN CORPUSCULAR HGB CONC 32.4 g/dl (32-36); MEAN PLATELET VOLUME 8.7 fl (7.4-10.4); MONO % 5.2 % (0-9); PLATELET COUNT 364 K/uL (130-400); RED BLOOD COUNT 4.62 M/uL (3.80-5.40); RED CELL DISTRIBUTION WIDTH 13.6 % (11.5-14.5); WHITE BLOOD COUNT W/O DIFF 16.7 K/uL (4.2-12.2)
[2019-02-18] MEDS ORDERED: LEVOFLOXACIN 250MG IVPB 250 MG/50 ML BAG IVPB ONE (03:04)
[2019-02-18 03:05] LABS: BILIRUBIN,TOTAL 0.2 mg/dL (0.2-1.0); CREATININE 1.1 mg/dL (0.5-0.9)
[2019-02-18 03:06] LABS: TOTAL PROTEIN 6.8 g/dL (6.6-8.7)
[2019-02-18] MEDS ORDERED: LEVOFLOXACIN/D5W 750 MG/150 ML BAG IVPB ONE (03:07)
[2019-02-18 03:11] LABS: ALB/GLOB RATIO 1.5 (1.1-1.8); ALBUMIN 4.1 g/dL (4.0-5.0)
[2019-02-18 03:12] LABS: INFLUENZA A NEGATIVE (NEGATIVE); INFLUENZA B NEGATIVE (NEGATIVE)
[2019-02-18 03:36] LABS: ARTERIAL BLOOD GAS PCO2 57.1 mmHg (35-48); ARTERIAL BLOOD GAS pH 7.28 (7.35-7.45)
[2019-02-18 03:37] LABS: ARTERIAL BLOOD GAS HCO3 25.9 mmol/L (18-23)
[2019-02-18 03:38] LABS: ARTERIAL BLD GAS O2 SATURATION 98.1 % (95-98); CARBOXYHEMOGLOBIN 2.5 % (0-1.5); O2 HEMOGLOBIN 95.8 % vol (94-99); TOTAL HEMOGLOBIN 10.9 g/dl (11.6-16)
[2019-02-18 03:39] LABS: ALLEN TEST PASS
[2019-02-18] MEDS ORDERED: 0.9 % SODIUM CHLORIDE 1000ML 500 ML IV SCH (04:45)
--- NOTE | 2019-02-21 09:24 | RADIOLOGY REPORT ---
EXAM: PORTABLE CHEST HISTORY: DIFFICULTY BREATHING. DECREASED O2 SATURATION. TECHNIQUE: A single portable AP view of the chest was performed. Comparison: 12/04/18. FINDINGS: The heart is normal in size. There is calcification of the aorta. The mediastinum and pulmonary vasculature are normal. The lungs are hyperinflated consistent with COPD. There are no visible acute infiltrates or effusions. There is no pneumothorax. Coarse benign calcifications are present within both breasts and project over the lower lung brumfield. These are consistent with involuted fibroadenomas. The bones are osteopenic, but appear intact. IMPRESSION: 1. STABLE COPD. 2. NO ACUTE INTRATHORACIC PATHOLOGY. JOB NUMBER: [id number] [facility]
== END 2019-02-18 04:50 | disposition short-term general hospital (02) ==
LOC: ER 02:37
DX: A41.9 Sepsis, unspecified organism (principal); J96.01 Acute respiratory failure with hypoxia; J44.1 Chronic obstructive pulmonary disease with (acute) exacerbation; R79.89 Other specified abnormal findings of blood chemistry; R94.5 Abnormal results of liver function studies; I10 Essential (primary) hypertension; F17.210 Nicotine dependence, cigarettes, uncomplicated
CPT/HCPCS: 99291 ×2; 96365; 96375; 99292; 83605; 85025; 82375; 80053; 82803; 87400; 84484; 71045; 94640; 36600; 94660; 93005; 93010; J2405; J1956; J2060; J2930; J7030